=== PATIENT | male | born 1965 | race Caucasian/White ===

== ENCOUNTER → 2016-12-03 | Outpatient (CLI) | payer BC ==
[~2016-12-03] MED LIST: AMLO-114 PO; ASPEC325 PO; CLOP1TAB15 PO; CRS10 PO; EZET10TA63 PO; GARLIQUE PO; GLC500 PO; IBUP-1428 PO; LISI-725 PO; LRTUNK PO; MORP30TA PO; OMEG10007 PO; REGADENOSON 0.4 MG/5 ML SYR ONE; ZNTT/150 PO
--- NOTE | 2016-12-06 11:34 | MYOCARDIAL PERFUSION SCAN ---
ONE-DAY NUCLEAR MEDICINE TECHNETIUM-99M CARDIOLITE MYOCARDIAL PERFUSION SCAN CLINICAL HISTORY: The patient has known coronary artery disease and has experienced a chest pain syndrome. COMPARISON: None. TECHNIQUE: For the stress portion of the study, 32.2 mCi of Technetium 99 m Cardiolite IV was injected at 11:02 am on 12/03/2016. Thirty minutes following the injection, imaging of the heart was performed in multiple projection. For the rest portion of the study, 11.0 mCi of Technetium 99 m Cardiolite was injected IV at 9:30 am. One hour following the injection, imaging of the heart was performed in the same projections. For the stress portion of the study, 0.4 mg of Lexiscan was injected intravenously as per protocol. The patient did experience chest discomfort with the Lexiscan infusion. There were no EKG changes. Following the study, patient was hemodynamically stable without complaints. FINDINGS: The short axis, vertical long axis, horizontal long axis images were reviewed in detail. There is a small fixed defect in the proximal inferior wall present at both stress and rest. This likely represents an old myocardial infarction (versus diaphragmatic attenuation which seems less likely). Left ventricular systolic function is mildly reduced at 47%. There is akinesis of the proximal inferior wall again suggesting a prior infarction. IMPRESSION: 1. 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 2. No stress induced myocardial ischemia. 3. Lexiscan induced chest discomfort. 4. No Lexiscan induced EKG changes. 5. Mildly reduced left ventricular ejection fraction of 47% with an inferior wall motion abnormality.
== END | disposition home or self-care (01) ==
LOC: C.NUCL 08:59
PROVIDERS: ATTEND Internal Medicine Cardiovascular Disease
DX: I25.10 Atherosclerotic heart disease of native coronary artery without angina pectoris (principal); R06.02 Shortness of breath; R07.89 Other chest pain

== ENCOUNTER → 2017-01-25 | Outpatient (CLI) | payer OTHER ==
[~2017-01-25] MED LIST changes: -REGADENOSON 0.4 MG/5 ML SYR ONE
--- NOTE | 2017-01-26 06:22 | PAP/PSG TECHNICIAN REPORT ---
[facility] Nib Inspector Polysomnogram Report Study name: None Report date: 01/26/2017 Study date: 01/25/2017 Referring Physician: DR. KATIE GILLIAM Name: FANTA BELL Interpreting Physician: Kiran Townsend M.D. Date of : 1965 Nib Inspector: JACOB Samuel. Sex: Male Age: 51 Study Type: PSG Weight: 218 lbs 18 in Height: 51 years, Height 5' 8" Neck Circum: BMI: 33.14 Medications: ALBUTEROL 90 MCG, AMLODIPINE 5 MG, CLOPIDOGREL BISULFATE 75 MG, HYDROCODONE/ACETAMINOPHEN 10-325 MG, IBUPROFEN 800 MG, LISINOPRIL 20 MG, METFORMIN 500 MG, RANITIDINE 150 MG, ROSUVASTATIN 20 MG Patient History 51 yr-old male here for a baseline study. He has a history of snoring, witnessed apneas, and restless sleep. His Vermilion scale is 7. The test was started on room air. ETCO2 testing was not utilized during this study. Room 1 Parameters Monitored NPSG: E1-M2, E2-M1, Fp1-M2, Fp2-M1, F3-M2, F4-M2, F4-M1, C3-M2, C4-M2, C4-M1, O1-M2, O2-M2, O2-M1, T3-M2, T4-M1, P3-M2, P4-M1, CHIN1, CHIN2, HR, EKG, Legs, PFLOW, SNOR, FLOW, CFLOW, Tidal Volume, THOR, ABDO, SpO2, PLTH, CPRESS, ETCO2 Wave, ETCO2, pH Sleep Architecture Sleep Stages Time at Lights Off 10:34:30 PM STAGES Time (min.) TST (%) Time at Lights On 5:31:30 AM Wake 90.0 -- Total Recording Time (TRT) 417.00 min. N1 44.5 14 Total Sleep Period (TSP) 386.0 min. N2 224.5 69 Total Sleep Time (TST) 327.0min. N3 0.5 0 Awake Time 90.0 min. REM 57.5 18 Wake after Sleep Onset 59.0 min. Sleep Efficiency (SE) 78 % Sleep Onset Latency (RHEA) 31.0 min. Number of Stage 1 Shifts None Awakenings 14 Stage Changes 75 Number of REM periods 3 REM 57.5 18 REM Latency 146.5 min. NREM 269.5 82 Body Position Analysis Supine Right Left Side Prone Vertical Total Sleep Time (min.) 24.9 291.7 35.3 327.00 0.0 1.8 Total Sleep Time (%) 0% 89% 11% 100 0% N/A% Total Sleep Time REM (min.) 0.0 57.5 0.0 None 0.0 0.0 Total Sleep Time NREM (min.) 0.0 234.2 35.3 None 0.0 0.0 Intermittent Wake (min.) 24.9 24.5 38.8 None 0.0 1.8 Total Sleep Period (%) 0% None None None None None Arousals Myoclonus (PLM) * Events Count Index Events Count Index Spontaneous 32 6 Events Awake (PLMW) 63 42.0 Respiratory 5 0.9 Events Asleep w/ Arousal (PLMA) 20 3.7 PLM 20 4 Events Asleep w/o Arousal (PLMS) 244 44.8 Snoring 5 1 Total Asleep 264 48.4 Total 62 11 Total 327 47 Respiratory Analysis * CA OA MA CH H RERA Total Count 0 0 0 0 9 3 9 Index 0.0 0.0 0.0 0 1.7 1 2.2 Mean Duration 0.0 0.0 0.0 0.00 17.4 19.0 17.8 Longest Duration 0.0 0.0 0.0 0.00 0.0 21.4 21.4 Respiratory Event Summary Total Supine ~Supine Right Left Prone REM NREM Apneas Count 0 N/A 0 0 0 N/A 0 0 Index 0.0 N/A 0 0.0 0.0 N/A 0 0 Hypopneas (4% Desat) Count 9 N/A 9 9 0 N/A 7 2 Index 1.7 N/A 2 1.9 0.0 N/A 7.3 0.4 Apneas & All Hypopneas Count 9 N/A 9 9 0 N/A 7 2 Index 1.7 N/A 2 2 0 N/A 7.3 0.4 Respiratory Events ([employer] Bab[employer]itter+All Hyp+RERA) Count 9 N/A 12 12 0 N/A 7 2 Index 2.2 N/A 2 2.5 0.0 N/A 9.4 0.7 Respiratory Related Arousal Count 5 N/A 5 5 0 N/A 2 3 Index 0.9 N/A 1 1 0 N/A 2 1 Snoring Analysis Supine Right Left Prone REM NREM Total Snore duration 9.6 min Snores count N/A 525 17 N/A 20 522 542 Snore mean duration 1.1 Sec Snores index N/A 108 29 N/A 20.9 116.2 99.4 TST with snoring (%) 2.9% Desaturation Event Summary: Minimum %SpO2 Event Count Mean/Min/Max Duration(sec.) Desaturation Index % Time In Bed > 90 18 27.2 / 5.8 / 59.0 2.7 99.8 86 - 90 0 N/A 0.0 0.1 81 - 85 0 N/A 0.0 0.0 76 - 80 0 N/A 0.0 0.0 71 - 75 0 N/A 0.0 0.0 66 - 70 0 N/A 0.0 0.0 61 - 65 0 N/A 0.0 0.0 56 - 60 0 N/A 0.0 0.0 51 - 55 0 N/A 0.0 0.0 < 50 0 N/A 0.0 0.0 Total REM NREM Awake <50% 0.0 min. 0.0 min. 0.0 min. 0.0 min. 51 - 60% 0.0 min. 0.0 min. 0.0 min. 0.0 min. 61 - 70% 0.0 min. 0.0 min. 0.0 min. 0.0 min. 71 - 80% 0.0 min. 0.0 min. 0.0 min. 0.0 min. 81 - 90% 0.8 min. 0.1 min. 0.0 min. 0.6 min. 91 - 100% 405.2 min. 57.4 min. 269.4 min. 78.4 min. Average 94 94 94 95 Minimum SpO2 83 90 91 83 Desaturation Event Index 2.6 7.3 1.3 3.3 # Desat. Events below 89% N/A N/A N/A N/A Time(%) with Saturation below 89% 0.0 0.0 0.0 0.0 Time(min.) with Saturation below 89% 0.1 0.0 0.0 0.1 Time (mins) REM (mins) NREM (mins) % of TST SpO2 Below 90% 2 1 N1 0.0 SpO2 Below 88% 0 0 0 0 Heart Rate Analysis Min (bpm) Max (bpm) Average (bpm) Awake 52 83 64 NREM 47 80 57 REM 50 82 62 Overall 47 82 58 Supplemental O2 Values Minimum O2 level: None Value Start Time End Time Nib Inspector Comments Mr. Bell slept in the right and left positions. Occasional cardiac arrhythmias were noted. PLMs were noted. No bruxism noted. Snoring was noted and scored as a 2 on a scale of 1 through 5. (0=no snoring, 5=snoring loud enough to be heard through a closed door or down the [address] way) He awoke to use the restroom two times during the night. Mr. Bell stated that he slept the same as usual. The final report will be interpreted and signed by a sleep physician. The completed physician report will then be placed in the patient medical record. Therapy (cm H2O) 0 TIB (min.) 417.0 TST (min.) 327.0 Sleep Onset (min.) 31.0 REM Onset From Sleep (min.) 146.5 Sleep Efficiency % 78 Wakefulness (%) 22 Wakefulness (min.) 90.0 NREM 1 (%) 14 NREM 1 (min.) 44.5 NREM 2 (%) 69 NREM 2 (min.) 224.5 NREM 3 (%) 0 NREM 3 (min.) 0.5 REM (%) 18 REM (min.) 57.5 # Arousals 62 Arousal Index 11 # Snore 542 Snore Index 99.4 AHI 1.7 AHI Supine N/A AHI Non-Supine 2 NREM AHI 0.4 REM AHI 7.3 RDI 2.2 # Obstructive Apnea 0 # Central Apnea 0 # Mixed Apnea 0 # Hypopneas 9 RERAs 3 Total Respiratory Events 12 Time Below SpO2 89% (min.) 0.0 Mean NREM SpO2 (%) 94 Mean REM SpO2 (%) 94 Mean Sleep SpO2 (%) 94 Min NREM SpO2 (%) 91 Min REM SpO2 (%) 90 Position Supine (min.) 24.9 Position Non-supine (min.) 327.0 LM Index Sleep 48.4 LM Index NREM 56.5 LM Index REM 10.4 Mean Heart Rate (bpm) 58 Min Heart Rate (bpm) 47
--- NOTE | 2017-01-27 00:51 | POLYSOMNOGRAPH REPORT ---
CLINICAL DATA: A 51-year-old male with BMI of 31.[address] Brodie Salazar for history of snoring, witnessed apnea, and restless sleep. His sleepiness score is 7/24. SLEEP ARCHITECTURE: Total sleep period was 386 minutes. Total sleep time was 327 minutes divided between 269.5 minutes of non-REM sleep and 57.5 minutes of REM sleep. Sleep onset latency was delayed at 31 minutes. REM latency was slightly delayed at 146.5 minutes. Sleep efficiency was slightly reduced at 78%. Wake after sleep onset was 59 minutes. Sleep consisted of stage N1 14%, stage N2 69%, stage N3 less than 1%, and REM 18%. AROUSAL DATA: Sixty two arousals were recorded for an index of 11 per hour. PERIODIC LIMB MOVEMENTS DATA: Moderately elevated limb movements during sleep were noted. There were 264 limb movements of sleep noted for an index of 48.4 per hour with arousal index of 3.7 per hour. RESPIRATORY DATA: There was no evidence of clinically significant sleep apnea/hypopnea seen. The AHI was 1.7. There were 9 hypopneic episodes with a mean duration of 17.4 seconds. OXIMETRY DATA: No hypoxemia was seen. Oxygen rachelle was 90% during REM. The mean saturation was 94%. ELECTROCARDIOGRAM: Heart rates ranged from 47-80 beats per minute. Occasional PACs with aberrant conduction were seen. ADJUNCT INSTRUCTOR'S COMMENTS: The patient slept in the right and left positions. Snoring was mild, rated 2 on a scale of 1-5. Frequent PLMs were noted throughout the night. IMPRESSION: 1. No evidence of clinically significant sleep apnea/hypopnea or nocturnal hypoxemia, two occasional premature atrial contractions with aberrant conduction. 2. Frequent limb movements during the night with intermittent arousal, question secondary to periodic limb movement disorder of sleep. RECOMMENDATIONS: There is no need for CPAP. The patient should continue to practice good sleep hygiene. If the patient has restless legs syndrome symptoms during the day, evaluation for reversible causes of RLS/PLMD could be considered. Clinical correlation is needed. [id number]
== END | disposition home or self-care (01) ==
LOC: C.NEUR 21:00
PROVIDERS: ATTEND Family Medicine
DX: G47.9 Sleep disorder, unspecified (principal)